=== PATIENT | male | born 1965 | race Two or more races ===

== ENCOUNTER 2025-05-31 19:11 | Emergency (ER) | payer OTHER ==
[~2025-05-31] VITALS: Ht 172.7 cm; Wt 81.5 kg
[2025-05-31 19:44] VITALS: O2SAT 99
[2025-05-31] MEDS: ONDANSETRON HCL 4MG TABLET PO ONE (21:06)
[2025-05-31] MEDS ORDERED: ONDA-239 PO (21:11)
[2025-05-31 21:22] VITALS: BP 155/90; PULSE 96; RESP 18; TEMP 36.6; O2SAT 99
== END 2025-05-31 21:26 | disposition home or self-care (01) ==
LOC: ER 19:11
DX: T65.891A Toxic effect of other specified substances, accidental (unintentional), initial encounter (principal); R42 Dizziness and giddiness; R11.2 Nausea with vomiting, unspecified; R10.9 Unspecified abdominal pain; E11.9 Type 2 diabetes mellitus without complications; I10 Essential (primary) hypertension; Y92.89 Other specified places as the place of occurrence of the external cause
CPT/HCPCS: 99283; Q0162